=== PATIENT | female | born 1930 | race Caucasian/White ===

== ENCOUNTER → 2016-12-30 | Outpatient (CLI) | payer MEDICARE, BC ==
[~2016-12-30] MED LIST: ACETAMINOPHEN PO; ANUSOL-HC SUPP25 MG PR; BETAPACE PO; CARAFATE1 G PO; CENTRUM SILVER PO; COUMADIN PO; DIAZEPAM PO; DIAZEPAM2.5 MG PO; DIGITEK125 MCG PO; HYDRALAZINE HCL50 MG PO; LANOXIN PO; LISINOPRIL PO; LISINOPRIL-HCTZ1 T14 PO; LORTAB 101 TAB 10/5; LORTAB 101 TAB 10/5 DOB; METHIMAZOLE10 MG PO; MYLANTA; OMEPRAZOLE40 MG PO; TYLOX 5/500 CAP1 CAP PO; ZANTAC PO
--- NOTE | ~2016-12-30 | MY11 ---
[facility] A Service of [facility] RADIOLOGY TEXT RESULTS PATIENT: TWYLA ROSS LOCATION: [facility] : 32 UNIT #: [id number] AGE: [address]: Saran Anderson MD SEX: F ORDER DR: [id number] [place], [place] [address] [id number] O MR#: [id number] Acc #: [id number] NAME: TWYLA ROSS : 1930 SEX: F STUDY DATE/TIME: 12/30/2016 10:01 UNIT: [facility] ROOM: STUDY DESCRIPTION: MY Mammogram Screening Dig Juancarlos Attending Physician: Saran Anderson M.D. Ordering Physician: Saran Anderson M.D. Primary Care Physician: Renny Moe M.D. MEDICAL IMAGING REPORT This report is preliminary unless electronic signature is present EXAM Digital screening mammogram with CAD. INDICATION Routine screening. PROCEDURE Bilateral CC and MLO views and XCCL views obtained on a digital mammography unit. FDA-approved CAD device is utilized. COMPARISON 02/05/2015 FINDINGS Scattered fibroglandular density. There is a 6 mm focal asymmetry subareolar right breast not clearly seen on the previous study. No other dominant mass. No suspicious calcification. IMPRESSION Incomplete mammogram. Recommend right diagnostic mammogram to evaluate a 6 mm focal asymmetry in the subareolar right breast. Patients over the age of 40 are entered into a reminder system with target due date for the next mammogram. A result letter will also be sent to the patient. BIRADS: 0 Incomplete; need additional imaging evaluation and/or prior mammograms for comparison. Dictated by... Jaime Howe M.D. [facility] A Service of [facility] RADIOLOGY TEXT RESULTS PATIENT: TWYLA ROSS LOCATION: [facility] : 31 UNIT #: [id number] AGE: [address]: Saran Anderson MD SEX: F ORDER DR: THIS IS AN ELECTRONICALLY VERIFIED REPORT Jaime Howe M.D. at 12/31/2016 7:08 AM EVA/richard TD: 12/30/2016 12:09 JOB #: [id number] MEDICAL IMAGING REPORT COPY
--- NOTE | ~2016-12-30 | CT57 ---
[facility] A Service of [facility] RADIOLOGY TEXT RESULTS PATIENT: TWYLA ROSS LOCATION: [facility] : 31 UNIT #: [id number] AGE: [address]: Saran Anderson MD SEX: F ORDER DR: [id number] [place], [place] [address] [id number] O MR#: [id number] Acc #: [id number] NAME: TWYLA ROSS : 1930 SEX: F STUDY DATE/TIME: 12/30/2016 11:11 UNIT: [facility] ROOM: STUDY DESCRIPTION: CT Chest Wo Cont Attending Physician: Saran Anderson M.D. Ordering Physician: Saran Anderson M.D. Primary Care Physician: Renny Moe M.D. MEDICAL IMAGING REPORT This report is preliminary unless electronic signature is present EXAM CT chest without contrast. INDICATION Malignant neoplasm of head, face, and neck. Head and neck cancer restaging. Observation for metastatic disease. PROCEDURE Noncontrast CT of the chest. This CT exam was performed with one or more of the following radiation dose reduction techniques: automatic exposure control, adjustment of mA and/or kV according to patient size, and iterative reconstruction. COMPARISON None FINDINGS No suspicious pulmonary nodules. No pleural fluid. No pneumothorax. No adenopathy. Coronary artery calcification. Heterogeneity of the thyroid gland may reflect underlying nodules. 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 This had a similar appearance on a 2013 CT of the abdomen and pelvis. IMPRESSION 1. No convincing evidence for metastatic disease to the chest. 2. 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 3. Heterogeneity of the thyroid gland may reflect underlying nodules and this would be better evaluated with a dedicated thyroid ultrasound. 4. Coronary artery calcification. [facility] A Service [facility] RADIOLOGY TEXT RESULTS PATIENT: TWYLA ROSS LOCATION: [facility] : 31 UNIT #: [id number] AGE: [address]: Saran Anderson MD SEX: F ORDER DR: Dictated by... Jaime Howe M.D. THIS IS AN ELECTRONICALLY VERIFIED REPORT Jaime Howe M.D. at 12/31/2016 5:05 PM EVA/richard TD: 12/31/2016 10:20 JOB #: [id number] MEDICAL IMAGING REPORT COPY
[2016-12-30 10:51] LABS: POC - CREATININE 1.59 mg/dL (0.44-1.03)
== END | disposition home or self-care (01) ==
LOC: CWCC 09:35
PROVIDERS: Internal Medicine Medical Oncology
DX: Z12.31 Encounter for screening mammogram for malignant neoplasm of breast (principal); C76.0 Malignant neoplasm of head, face and neck; R92.8 Other abnormal and inconclusive findings on diagnostic imaging of breast; K86.2 Cyst of pancreas
CPT/HCPCS: 71250; 82565; G0202